=== PATIENT | female | born 1960 | race Caucasian/White ===

== ENCOUNTER 2016-05-26 17:58 | Emergency (ER) | payer OTHER ==
[~2016-05-26] VITALS: Ht 157.5 cm; Wt 56.2 kg
[~2016-05-26 17:58] MED LIST: ATORVASTATIN CA20 M1 PO; BONIVA150 M1 PO; CRESTOR20 M2 PO; DAILY MULTIPLE1 EACH PO; FLEXERIL10 MG PO; MOBIC 15MG15 MG PO; VITAMIN D1000 UNIT PO
[2016-05-26 18:30] VITALS: BP 118/75
--- NOTE | 2016-05-26 18:50 | ED HAND/WRIST INJURY COMPLAINT ---
History of Present Illness General Chief Complaint: Laceration Procedure Stated Complaint: LAC TO FINGER Source: patient Exam Limitations: no limitations Vital Signs & Intake/Output Vital Signs & Intake/Output Vital Signs Date Time Temp Pulse Resp B/P Pulse O2 O2 Flow FiO2 Ox Delivery Rate 05/26 1830 98.1 79 20 118/75 97 Room Air Allergies Coded Allergies: NO KNOWN ALLERGIES (05/26/16) Reconcile Medications Cholecalciferol (Vitamin D3) (Vitamin D) 1,000 UNIT TABLET 1 TAB PO DAILY SUPPLEMENT (Reported) Ibandronate Sodium (Boniva) 150 MG TABLET 1 TAB PO Q30D BONE STRENGTH ( Reported) on the same date with a full glass of water at least 30 minutes before first food or drink of the day; remain in an upright posi Multivitamin (Daily Multiple Vitamin) 1 EACH TABLET 1 TAB PO DAILY SUPPLEMENT (Reported) Rosuvastatin Calcium (Crestor) 20 MG TABLET 1 TAB PO DAILY HIGH CHOLESTEROL ( Reported) Triage Note: TRIAGE: PT TO ER C/C LAC TO L INDEX FINGER S/P INJURY APPROX 5 PM TONIGHT. STATES CUT IT WITH A SERRATED EDGE KNIFE WHILE CUTTING A ROLL. HAS GAUZE DRESSING PLACE, CLEAN/DRY/INTACT AT TRIAGE. Triage Nurses Notes Reviewed? yes Occurred: just prior to arrival Duration: hour(s):, constant, continues in ED Timing: recent history Severity: mild Pain/Injury Location: Left: 2nd finger. Context: laceration Method of Injury: laceration No Modifying Factors: none HPI: 56-year-old female comes into emergency room with complaints of laceration to left index finger. Patient cut it while she was cutting some bread on a serrated knife. Last tetanus shot unknown. Patient had some bleeding and blood pressure on it. Patient comes in for further evaluation. Denies any numbness or tingling. Denies any other associated symptoms. (SURENDRA MEIER) Past History Travel History Traveled to [place] past 21 day No Medical History Any Pertinent Medical History? see below for history Neurological: NONE EENT: NONE Cardiovascular: hyperlipidemia Respiratory: NONE Gastrointestinal: NONE Hepatic: NONE Renal: NONE Musculoskeletal: osteoporosis, HERNIATED DISC Psychiatric: NONE Endocrine: NONE Blood Disorders: NONE Cancer(s): NONE [employer] ARCHITECT/Reproductive: NONE Surgical History Surgical History: none Psychosocial History What is your primary language Bengali Tobacco Use: Never used ETOH Use: occasional use Illicit Drug Use: denies illicit drug use Family History Hx Contributory? No (SURENDRA MEIER) Review of Systems Review of Systems Constitutional: Reports: no symptoms. EENTM: Reports: no symptoms. Respiratory: Reports: no symptoms. Cardiovascular: Reports: no symptoms. GI: Reports: no symptoms. Genitourinary: Reports: no symptoms. Musculoskeletal: Reports: no symptoms. Skin: Reports: see HPI. Neurological/Psychological: Reports: no symptoms. Hematologic/Endocrine: Reports: no symptoms. Immunologic/Allergic: Reports: no symptoms. All Other Systems: Reviewed and Negative (SURENDRA MEIER) Physical Exam Physical Exam General Appearance: well developed/nourished Head: atraumatic Eyes: Bilateral: normal appearance. Ears, Nose, Throat: normal ENT inspection, hearing grossly normal Neck: normal inspection Cardiovascular/Respiratory: no respiratory distress Back: normal inspection Wrist Left: normal range of motion Hand Left: 2nd finger, . 0.5 cm laceration left index finger Hand Right: normal inspection, normal range of motion Neurologic/Tendon: normal sensation, normal motor functions, normal tendon functions, responds to pain, no evidence tendon injury Skin: intact, normal color, warm/dry Lymphatic: no anterior cervical maggi (SURENDRA MEIER) Progress Differential Diagnosis: fracture, septic arthritis, sprain, tenosynovitis, tendon laceration Plan of Care: see below (SURENDRA MEIER) Departure Departure Disposition: HOME OR SELF CARE Condition: Stable Clinical Impression Primary Impression: Finger laceration Referrals: NUNU GRESHAM,MIKE Woods (PCP/Family) Additional Instructions: Return if any rendess swelling fever chills. return if any concerns/worsening of symptoms. Departure Forms: Customer Survey General Discharge Information (SURENDRA MEIER) PA/SPEECH AND LANGUAGE SPECIALIST Co-Sign Statement Statement: ED Attending supervision documentation- [] I saw and evaluated the patient. I have also reviewed all the pertinent lab results and diagnostic results. I agree with the findings and the plan of care as documented in the PA's/SPEECH AND LANGUAGE SPECIALIST's documentation. [x] I have reviewed the ED Record and agree with the PA's/SPEECH AND LANGUAGE SPECIALIST's documentation. [] Additions or exceptions (if any) to the PAs/SPEECH AND LANGUAGE SPECIALIST's note and plan are summarized below: [] (TEJ GRESHAM,ALISHA R.) Procedures Laceration/Wound Repair Laceration/Wound Repair: Wound Location: upper extremity Wound's Depth, Shape: linear Tetanus Status: not up to date Progress: Superficial laceration to left index finger, irrigated with peroxide, Dermabond used to seal, too superficial to suture, wrapped with sterile gauze, (GERALDINE DANIELS,SURENDRA)
== END 2016-05-26 19:09 ==
LOC: ERH 17:58
DX: S61.211A Laceration without foreign body of left index finger without damage to nail, initial encounter (principal); W26.0XXA Contact with knife, initial encounter; Y93.G1 Activity, food preparation and clean up
CPT/HCPCS: 90471; 90714